=== PATIENT | female | born 1960 | race Caucasian/White ===

== ENCOUNTER 2024-03-07 18:47 | Emergency (ER) | payer OTHER ==
[~2024-03-07] VITALS: Ht 160 cm; Wt 64.9 kg
[2024-03-07] MEDS ORDERED: ACETAMINOPHEN ES 500 MG TABLET ONE (19:46)
[2024-03-07] MEDS ORDERED: KETOROLAC TROMETHAMINE 15 MG/ML VIAL ONE (19:46)
[2024-03-07] MEDS: KETOROLAC TROMETHAMINE 15 MG/ML VIAL IM ONE (19:53)
[2024-03-07] MEDS: ACETAMINOPHEN ES 500 MG TABLET PO ONE (19:54)
[2024-03-07 21:06] VITALS: BP 128/81; TEMP 98; O2SAT 99
== END 2024-03-07 21:07 | disposition home or self-care (01) ==
LOC: ER 18:58
DX: M54.41 Lumbago with sciatica, right side (principal); G89.29 Other chronic pain; Z60.2 Problems related to living alone
CPT/HCPCS: 99283; 96372; J1885